=== PATIENT | male | born 1965 | race Caucasian/White ===

== ENCOUNTER 2020-03-03 19:00 | Emergency (ER) | payer OTHER ==
[~2020-03-03] VITALS: Ht 188 cm; Wt 122.5 kg
[~2020-03-03 19:00] MED LIST: NORCO 5-325 TA1 EACH PO; PREDNISONE 20 M20 MG PO
[2020-03-03 19:38] LABS: EOSINOPHILS 0.7 % (0.0-3.0); HEMATOCRIT 47.7 % (42.0-52.0); HEMOGLOBIN 16.4 gm/dL (14.0-18.0); MCH 31.8 pg (26.0-34.0); MCHC 34.3 g/dL (28.0-37.0); MCV 92.5 fL (80.0-100.0); MONOCYTES 8.1 % (1.0-8.0); PLATELET COUNT 213 thou/uL (150-400); POLYS 68.2 % (36.0-66.0); RBC 5.16 mil/uL (4.50-6.00); RDW 13.5 % (10.5-14.5); WBC 13.1 thou/uL (4.0-11.0)
[2020-03-03 19:41] LABS: URINE BILIRUBIN NEGATIVE (Negative); URINE BLOOD NEGATIVE (Negative); URINE CLARITY CLEAR; URINE COLOR YELLOW; URINE GLUCOSE-RANDOM* NEGATIVE (Negative); URINE KETONES NEGATIVE (Negative); URINE LEUKOCYTES-REFLEX NEGATIVE (Negative); URINE NITRITE-REFLEX NEGATIVE (Negative); URINE PROTEIN (DIPSTICK) NEGATIVE (Negative); URINE SPECIFIC GRAVITY 1.015 (1.005-1.035)
[2020-03-03 19:50] LABS: CALCIUM 8.6 mg/dL (8.5-10.1); POTASSIUM 4.4 mmol/L (3.5-5.1)
[2020-03-03 19:56] LABS: ALBUMIN 3.7 g/dL (3.4-5.0); TOTAL BILIRUBIN 0.4 mg/dL (0.2-1.0); TOTAL PROTEIN 7.8 g/dL (6.4-8.2)
[2020-03-03] MEDS ORDERED: NORCO 10-325 T1 EACH PO (21:01)
[2020-03-03] MEDS ORDERED: ONDANSETRON HCL4 M2 PO (21:01)
[2020-03-03 21:14] VITALS: BP 109/56
--- NOTE | 2020-03-05 08:40 | EKG ---
[facility] [place] [address] ELECTROCARDIOGRAM REPORT Name: KONSTANTIN BORJAS Room #: DEP [facility].#: [id number] Admission: 03/03/20 Attend Phys: Discharge: 03/03/20 Date of : 67 Report #: [id number] THIS REPORT FOR: cc: MEAGAN Ma family physician/PCP MEAGAN Ma family physician/PCP Marco Carranza MD [facility] ~ THIS REPORT FOR: //name// [facility] ED Test Date: 2020-03-03 Test Time: 19:18:10 Pat Name: KONSTANTIN BORJAS Department: Room: Gender: Welt Beater: [facility] : 1965 Requested By: James Stringer Order Number: [id number] MD: Marco Carranza Measurements Intervals [place] Rate: 67 P: 47 UT: 114 QRS: 37 QRSD: 84 T: 25 QT: 453 QTc: 475 Interpretive Statements Sinus rhythm Borderline short UT interval No previous ECG available for comparison Electronically Signed On 03-05-2020 8:40:21 CDT by Marco Carranza [email or web address] <ELECTRONICALLY SIGNED> By: Marco Carranza MD, FACC 03/05/20 0840 17 17 Marco Carranza MD, [facility] /EPI
== END 2020-03-03 21:15 | disposition home or self-care (01) ==
LOC: ER 19:00
PROVIDERS: Physician Assistant
DX: K80.20 Calculus of gallbladder without cholecystitis without obstruction (principal); M54.6 Pain in thoracic spine; E78.00 Pure hypercholesterolemia, unspecified; Z98.890 Other specified postprocedural states; Z79.899 Other long term (current) drug therapy; Z87.442 Personal history of urinary calculi

== ENCOUNTER → 2020-03-12 | Outpatient (CLI) | payer OTHER ==
[~2020-03-12] MED LIST changes: +ALEVE220 M1 PO; +ATORVASTATIN CA20 MG PO; +LISINOPRIL20 MG PO; +METFORMIN HCL500 MG PO; +NEURONTIN 300M300 M2 PO; +NORCO 10-325 T1 EACH PO; +ONDANSETRON HCL4 M2 PO
== END ==
LOC: LAB 12:07
PROVIDERS: ATTEND Surgery
DX: Z01.812 Encounter for preprocedural laboratory examination (principal); Z20.828 Contact with and (suspected) exposure to other viral communicable diseases

== ENCOUNTER 2020-03-14 10:22 | Emergency (ER) | payer OTHER ==
[~2020-03-14] VITALS: Ht 188 cm; Wt 120.2 kg
[2020-03-14 11:28] LABS: URINE BILIRUBIN NEGATIVE (Negative); URINE BLOOD 3+ (Negative); URINE CLARITY CLEAR; URINE COLOR YELLOW; URINE GLUCOSE-RANDOM* NEGATIVE (Negative); URINE KETONES NEGATIVE (Negative); URINE LEUKOCYTES-REFLEX NEGATIVE (Negative); URINE NITRITE-REFLEX NEGATIVE (Negative); URINE PROTEIN (DIPSTICK) NEGATIVE (Negative)
[2020-03-14 11:42] LABS: CASTS None Seen /LPF (None Seen); MUCUS 4-6 Moderate strn/LPF (None Seen); SQUAMOUS 0-3 Few /LPF (0-3)
[2020-03-14 11:43] LABS: BACTERIA-REFLEX 1-9 Few /HPF (None Seen); CRYSTALS None Seen /LPF (None Seen); URINE RBC >20 Many /HPF (0-2); URINE WBC-REFLEX 0-5 Rare /HPF (0-5)
[2020-03-14 11:56] LABS: ABSOLUTE NEUTROPHILS 4.9 thou/uL (1.4-8.2); BASOPHILS 1.2 % (0.0-2.0); EOSINOPHILS 1.4 % (0.0-3.0); HEMATOCRIT 44.6 % (42.0-52.0); HEMOGLOBIN 15.2 gm/dL (14.0-18.0); LYMPHOCYTES 25.6 % (24.0-44.0); MCH 31.2 pg (26.0-34.0); MCHC 34.1 g/dL (28.0-37.0); MCV 91.4 fL (80.0-100.0); MONOCYTES 8.9 % (1.0-8.0); PLATELET COUNT 180 thou/uL (150-400); POLYS 62.9 % (36.0-66.0); RBC 4.88 mil/uL (4.50-6.00); RDW 13.7 % (10.5-14.5); WBC 7.8 thou/uL (4.0-11.0)
[2020-03-14 12:03] LABS: CALCIUM 8.7 mg/dL (8.5-10.1); POTASSIUM 4.4 mmol/L (3.5-5.1)
[2020-03-14 12:09] LABS: ALBUMIN 3.4 g/dL (3.4-5.0); DIRECT BILIRUBIN 0.1 mg/dL (<0.1-0.2); TOTAL BILIRUBIN 0.3 mg/dL (0.2-1.0); TOTAL PROTEIN 7.2 g/dL (6.4-8.2)
[2020-03-14 14:26] VITALS: BP 107/65
== END 2020-03-14 14:26 | disposition home or self-care (01) ==
LOC: ER 10:22
PROVIDERS: Emergency Medicine
DX: R31.9 Hematuria, unspecified (principal); I10 Essential (primary) hypertension; E11.9 Type 2 diabetes mellitus without complications; E78.5 Hyperlipidemia, unspecified; Z79.899 Other long term (current) drug therapy

== ENCOUNTER 2020-03-16 09:56 | Day surgery (SDC) | payer OTHER ==
[~2020-03-16] VITALS: Ht 188 cm; Wt 117.5 kg
[2020-03-16 11:03] VITALS: BP 133/90
[2020-03-16] MEDS ORDERED: COLACE 100 MG100 MG PO ×2 (13:23)
[2020-03-16] MEDS ORDERED: HYDROCODON-ACE1 EAC7 PO ×2 (13:23)
[2020-03-16] MEDS ORDERED: MIRALAX17 GM PO ×2 (13:23)
[2020-03-16 13:53] VITALS: BP 133/90
--- NOTE | 2020-03-18 17:06 | PATH ---
[facility] [address] [place] [address] PATHOLOGY RPT PROCEDURE Name: KONSTANTIN BENTON YAYA Room #: DEP [facility] M.R.#: [id number] Admission: 03/16/20 Date of : 67 Discharge: 03/16/20 Report #: [id number] Path Case #: [id number] [facility] Accession Number: [id number] . 01 Material submitted: . gallbladder - GALLBLADDER . 01 Clinical history: . CHOLECYSTITIS . 02 Diagnosis: Gallbladder, cholecystectomy: - Mild chronic cholecystitis. - Cholelithiasis. - Focal cholesterolosis. (IUV/db; 03/18/2020) LBQ 03/18/2020 1332 Local . 02 Electronically signed: . Zuleika Cruz MD, Pathologist NPI- [id number] . 01 Gross description: . The specimen is received in formalin labeled "Konstantin Benton, gallbladder" and consists of a deflated punctured pink gallbladder measuring 6.7 x 3.3 x 1.2 cm. The margin is inked black. A single spiculated brown calculus is present measuring 1.1 cm. The mucosa is brown with yellow stippling and an average wall thickness of 0.1 cm. No masses are identified. [employer] sections are submitted in A1. (SDY; 03/17/2020) SYU/SYU 03/17/2020 1106 Local . 02 Pathologist provided ICD-10: K80.10 . 02 CPT . 704718 Specimen Comment: A courtesy copy of this report has been sent to [phone] Specimen Comment: Report sent to Performed at: [address], [place] [id number] MD Thomas Bingham MD Phone: [phone] Performed at: [address] [id number] MD Zuleika Cruz MD Phone: [phone]
== END 2020-03-16 15:20 | disposition home or self-care (01) ==
LOC: OR 09:56 → TBA 10:03 → OR 12:24
PROVIDERS: ATTEND Surgery
DX: K80.10 Calculus of gallbladder with chronic cholecystitis without obstruction (principal); R10.9 Unspecified abdominal pain; I10 Essential (primary) hypertension; E11.9 Type 2 diabetes mellitus without complications; E78.00 Pure hypercholesterolemia, unspecified; Z98.890 Other specified postprocedural states; Z87.891 Personal history of nicotine dependence; Z79.899 Other long term (current) drug therapy
CPT/HCPCS: 50010; 50101; 50411; 50555; 50558; 51489; 52265; 52266; 53307; 53310; 53312; 54022; 54118; 55245; 56462; 56525; 56526; 58115; 62110; 62900; 70005

== ENCOUNTER 2020-04-07 06:40 | Emergency (ER) | payer OTHER ==
[~2020-04-07] VITALS: Ht 188 cm; Wt 117.9 kg
[~2020-04-07 06:40] MED LIST changes: +COLACE 100 MG100 MG PO; +HYDROCODON-ACE1 EAC7 PO; +MIRALAX17 GM PO
[2020-04-07 07:14] LABS: ABSOLUTE NEUTROPHILS 4.2 thou/uL (1.4-8.2); BASOPHILS 1.1 % (0.0-2.0); EOSINOPHILS 1.3 % (0.0-3.0); HEMATOCRIT 41.6 % (42.0-52.0); HEMOGLOBIN 14.1 gm/dL (14.0-18.0); LYMPHOCYTES 28.7 % (24.0-44.0); MCHC 33.9 g/dL (28.0-37.0); MCV 91.5 fL (80.0-100.0); MONOCYTES 9.5 % (1.0-8.0); PLATELET COUNT 167 thou/uL (150-400); POLYS 59.4 % (36.0-66.0); RBC 4.54 mil/uL (4.50-6.00); RDW 14.5 % (10.5-14.5); WBC 7.1 thou/uL (4.0-11.0)
[2020-04-07 07:22] LABS: CALCIUM 9.1 mg/dL (8.5-10.1); CREATININE 0.9 mg/dL (0.7-1.3); POTASSIUM 4.2 mmol/L (3.5-5.1)
[2020-04-07 07:28] LABS: ALBUMIN 3.7 g/dL (3.4-5.0); TOTAL BILIRUBIN 0.5 mg/dL (0.2-1.0); TOTAL PROTEIN 7.4 g/dL (6.4-8.2)
[2020-04-07 07:28] LABS: URINE BILIRUBIN NEGATIVE (Negative); URINE BLOOD NEGATIVE (Negative); URINE CLARITY CLEAR; URINE COLOR YELLOW; URINE GLUCOSE-RANDOM* NEGATIVE (Negative); URINE KETONES NEGATIVE (Negative); URINE LEUKOCYTES-REFLEX NEGATIVE (Negative); URINE NITRITE-REFLEX NEGATIVE (Negative); URINE PROTEIN (DIPSTICK) NEGATIVE (Negative); URINE SPECIFIC GRAVITY 1.015 (1.005-1.035)
[2020-04-07] MEDS ORDERED: NORFLEX100 MG PO (10:35)
[2020-04-07] MEDS ORDERED: ZTLIDO1 EACH TRANSDERM (10:35)
[2020-04-07 11:43] VITALS: BP 132/68
== END 2020-04-07 11:44 | disposition home or self-care (01) ==
LOC: ER 06:40
PROVIDERS: Emergency Medicine
DX: R10.84 Generalized abdominal pain (principal); I10 Essential (primary) hypertension; E11.9 Type 2 diabetes mellitus without complications; E78.5 Hyperlipidemia, unspecified; Z87.442 Personal history of urinary calculi; Z90.49 Acquired absence of other specified parts of digestive tract; Z90.89 Acquired absence of other organs; Z98.890 Other specified postprocedural states; Z79.899 Other long term (current) drug therapy

== ENCOUNTER 2021-04-24 01:51 | Emergency (ER) | payer OTHER ==
[~2021-04-24] VITALS: Ht 182.9 cm; Wt 90.7 kg
[~2021-04-24 01:51] MED LIST changes: +NORFLEX100 MG PO; +ZTLIDO1 EACH TRANSDERM
[2021-04-24 02:40] VITALS: BP 131/69
[2021-04-24] MEDS ORDERED: OXAYDO7.5 MG PO (02:43)
== END 2021-04-24 03:20 | disposition home or self-care (01) ==
LOC: ER 01:51
DX: M79.605 Pain in left leg (principal); E11.9 Type 2 diabetes mellitus without complications; I10 Essential (primary) hypertension; Z90.89 Acquired absence of other organs; Z79.899 Other long term (current) drug therapy

== ENCOUNTER 2021-08-17 00:15 | Emergency (ER) | payer BC ==
[~2021-08-17] VITALS: Ht 188 cm; Wt 122.5 kg
[~2021-08-17 00:15] MED LIST changes: +OXAYDO7.5 MG PO
[2021-08-17 00:17] VITALS: BP 141/86
[2021-08-17] MEDS ORDERED: HYDROXYZINE HCL25 M2 PO (00:38)
== END 2021-08-17 00:57 | disposition home or self-care (01) ==
LOC: ER 00:15
DX: R21 Rash and other nonspecific skin eruption (principal); E11.9 Type 2 diabetes mellitus without complications; I10 Essential (primary) hypertension; Z90.89 Acquired absence of other organs; Z79.899 Other long term (current) drug therapy

== ENCOUNTER 2021-08-20 23:27 | Emergency (ER) | payer BC ==
[~2021-08-20] VITALS: Ht 188 cm; Wt 127.0 kg
[~2021-08-20 23:27] MED LIST changes: +HYDROXYZINE HCL25 M2 PO
[2021-08-21] MEDS ORDERED: MEDROLDOSEPACK PO (00:45)
[2021-08-21 00:48] VITALS: BP 190/83
== END 2021-08-21 00:48 | disposition home or self-care (01) ==
LOC: ER 23:27
DX: R21 Rash and other nonspecific skin eruption (principal); E11.9 Type 2 diabetes mellitus without complications; I10 Essential (primary) hypertension; Z90.89 Acquired absence of other organs; Z79.899 Other long term (current) drug therapy